=== PATIENT | male | born 1950 | race African-American/Black ===

== ENCOUNTER 2017-06-29 08:02 | Inpatient (IN) ==
[2017-06-29 10:56] LABS: Basophils % 0.7 % (0.0-0.8); Eosinophils # 0.3 10*3/uL (0.0-0.87); Hematocrit 32.5 VOL% (42.0-52.0); Immature Granulocytes % 0.2 %; Immature Granulocytes Absolute 0.01 #; Lymphocytes # 1.3 10*3/uL (1.4-4.0); Lymphocytes % 21.3 % (21.2-54.2); Mean Corpuscular HGB Conc 33.8 GM/DL (32-36); Mean Corpuscular Hemoglobin 29 PG (27-34); Mean Corpuscular Volume 85.5 FL (87-102); Mean Platelet Volume 10.9 FL (9.6-12.0); Monocytes # 0.6 10*3/uL (0.11-0.8); Monocytes % 9.6 % (1.7-12.7); Neutrophils # 3.8 10*3/uL (1.4-7.4); Neutrophils % 63.2 % (38.7-73.9); Platelet Count 160 T/CUMM (130-400); Red Cell Distribution Width 12.8 % (9.3-17.3)
[2017-06-29 11:11] LABS: INR 0.9; PT Patient Result 9.9 SECS; Partial Thromboplastin Time 28.2 SECS (0-40)
[2017-06-29 11:33] LABS: Albumin 2.3 G/DL (3.4-5.0); Bilirubin,Total 0.4 MG/DL (0.2-1.0); Calcium 7.2 MG/DL (8.5-10.1); Osmolality,Calculated 298.7 MOS/KG (273-304); Potassium 4.1 MMOL/L (3.5-5.1); Total Protein 5.5 G/DL (6.4-8.3)
[2017-06-29] MEDS ORDERED: ONDANSETRON 4 MG/2 ML VIAL IV PRN (11:52)
[2017-06-29 12:33] LABS: Hepatitis A Ab IgM Quant 0.14 Index; Hepatitis A Ab IgM Result Negative (Negative); Hepatitis B Core IgM Quant 0.14 Index; Hepatitis B Core IgM Result Negative (Negative); Hepatitis B Surface Ag Quant 0.52 Index; Hepatitis B Surface Ag Result Negative (Negative); Hepatitis C Virus Ab Quant < 0.02 Index; Hepatitis C Virus Ab Result Negative (Negative)
[2017-06-29 12:34] LABS: Albumin 2.3 G/DL (3.4-5.0); Calcium 7.1 MG/DL (8.5-10.1); Osmolality,Calculated 297.7 MOS/KG (273-304); Phosphorous 5.6 MG/DL (2.5-4.9); Potassium 4.1 MMOL/L (3.5-5.1)
[2017-06-29] MEDS ORDERED: ceFAZolin 1,000 MG in SYRINGE 1 EACH IV ONE (12:40)
[2017-06-29] MEDS: DEXTROSE 5% NACL 0.45% 1,000 ML IV SCH (13:15)
[2017-06-29] MEDS ORDERED: HEPARIN 5,000 UNIT/1 ML VIAL ONE (13:43)
[2017-06-29] MEDS ORDERED: BUPIVACAINE 0.25% 50 ML VIAL ONE (13:43)
[2017-06-29] MEDS: SEVELAMER CARBONATE 800 MG TABLET PO SCH ×2 (14:36→17:25)
[2017-06-29] MEDS ORDERED: PROPOFOL 200 MG/20 ML VIAL IV ONE (15:58)
[2017-06-29] MEDS ORDERED: MIDAZOLAM 2 MG/2 ML VIAL ONE (15:58)
[2017-06-29] MEDS: cloNIDine 0.1 MG TABLET PO SCH (22:27)
[2017-06-29] MEDS: hydrALAZINE 25 MG TABLET PO SCH (22:27)
[2017-06-29] MEDS: CARVEDILOL 25 MG TABLET PO SCH (22:27)
[2017-06-29] MEDS: SIMVASTATIN 20 MG TABLET PO SCH (22:27)
[2017-06-29] MEDS: INSULIN GLARGINE 100 UNIT/ML SUBCUT SCH (22:27)
[2017-06-30 06:45] LABS: Basophils % 0.6 % (0.0-0.8); Eosinophils # 0.3 10*3/uL (0.0-0.87); Eosinophils % 5.2 % (0.00-10.9); Hematocrit 30.2 VOL% (42.0-52.0); Hemoglobin 10.2 GM/DL (14.0-18.0); Immature Granulocytes % 0.2 %; Immature Granulocytes Absolute 0.01 #; Lymphocytes % 20.8 % (21.2-54.2); Mean Corpuscular HGB Conc 33.8 GM/DL (32-36); Mean Corpuscular Hemoglobin 29 PG (27-34); Mean Corpuscular Volume 84.6 FL (87-102); Mean Platelet Volume 11.5 FL (9.6-12.0); Monocytes # 0.6 10*3/uL (0.11-0.8); Monocytes % 11.4 % (1.7-12.7); Neutrophils # 3.1 10*3/uL (1.4-7.4); Neutrophils % 61.8 % (38.7-73.9); Platelet Count 152 T/CUMM (130-400); Red Blood Count 3.57 MC/CUMM (3.8-5.5); Red Cell Distribution Width 12.4 % (9.3-17.3)
[2017-06-30 07:18] LABS: Albumin 1.9 G/DL (3.4-5.0); Calcium 7.2 MG/DL (8.5-10.1); Phosphorous 5.1 MG/DL (2.5-4.9); Potassium 3.7 MMOL/L (3.5-5.1)
[2017-06-30] MEDS: DEXTROSE 5% NACL 0.45% 1,000 ML IV SCH ×2 (08:42→17:26)
[2017-06-30] MEDS: amLODIPine 10 MG TABLET PO SCH (08:43)
[2017-06-30] MEDS: SEVELAMER CARBONATE 800 MG TABLET PO SCH ×3 (08:43→16:57)
[2017-06-30] MEDS: CARVEDILOL 25 MG TABLET PO SCH ×2 (08:43→20:53)
[2017-06-30] MEDS: hydrALAZINE 25 MG TABLET PO SCH ×2 (08:43→20:53)
[2017-06-30] MEDS ORDERED: VICTOZA (Liraglutide) 1.8 MG SUBCUT SCH (09:00)
[2017-06-30] MEDS: SIMVASTATIN 20 MG TABLET PO SCH (20:53)
[2017-06-30] MEDS: INSULIN GLARGINE 100 UNIT/ML SUBCUT SCH (20:53)
[2017-06-30] MEDS: cloNIDine 0.1 MG TABLET PO SCH (20:53)
[2017-07-01] MEDS: DEXTROSE 5% NACL 0.45% 1,000 ML IV SCH (05:12)
[2017-07-01 07:12] LABS: Basophils % 0.9 % (0.0-0.8); Eosinophils # 0.3 10*3/uL (0.0-0.87); Eosinophils % 6.1 % (0.00-10.9); Hematocrit 32.2 VOL% (42.0-52.0); Hemoglobin 10.8 GM/DL (14.0-18.0); Immature Granulocytes % 0.2 %; Immature Granulocytes Absolute 0.01 #; Lymphocytes # 1.1 10*3/uL (1.4-4.0); Mean Corpuscular HGB Conc 33.5 GM/DL (32-36); Mean Corpuscular Hemoglobin 29 PG (27-34); Mean Corpuscular Volume 85.2 FL (87-102); Mean Platelet Volume 10.8 FL (9.6-12.0); Monocytes # 0.5 10*3/uL (0.11-0.8); Monocytes % 12.2 % (1.7-12.7); Neutrophils # 2.5 10*3/uL (1.4-7.4); Neutrophils % 55.6 % (38.7-73.9); Platelet Count 154 T/CUMM (130-400); Red Blood Count 3.78 MC/CUMM (3.8-5.5); Red Cell Distribution Width 12.2 % (9.3-17.3); White Blood Count 4.4 T/CUMM (4-12)
[2017-07-01] MEDS: SEVELAMER CARBONATE 800 MG TABLET PO SCH ×3 (09:32→17:04)
[2017-07-01] MEDS: CARVEDILOL 25 MG TABLET PO SCH ×2 (09:32→23:46)
[2017-07-01] MEDS: amLODIPine 10 MG TABLET PO SCH (12:16)
[2017-07-01] MEDS: hydrALAZINE 25 MG TABLET PO SCH ×2 (12:16→23:45)
[2017-07-01] MEDS: SIMVASTATIN 20 MG TABLET PO SCH (23:45)
[2017-07-01] MEDS: INSULIN GLARGINE 100 UNIT/ML SUBCUT SCH (23:46)
[2017-07-01] MEDS: cloNIDine 0.1 MG TABLET PO SCH (23:46)
[2017-07-02] MEDS: SEVELAMER CARBONATE 800 MG TABLET PO SCH ×2 (09:24→11:42)
[2017-07-02] MEDS: hydrALAZINE 25 MG TABLET PO SCH (09:25)
[2017-07-02] MEDS: CARVEDILOL 25 MG TABLET PO SCH (09:25)
[2017-07-02] MEDS: amLODIPine 10 MG TABLET PO SCH (09:25)
[2017-07-02 12:52] VITALS: BP 144/65
== END 2017-07-02 15:30 | disposition home or self-care (01) | DRG 673 ==
LOC: N.5E 08:02
PROVIDERS: ADMIT Internal Medicine Nephrology; ATTEND Internal Medicine Nephrology